=== PATIENT | female | born 1950 | race Caucasian/White ===

== ENCOUNTER 2017-03-16 11:52 | Outpatient (CLI) | payer MEDICARE, BC ==
[~2017-03-16] VITALS: Ht 157.5 cm; Wt 79.5 kg
[~2017-03-16 11:52] MED LIST: BAYER CHEWABLE81 MG PO; BETAPACE 120 M120 MG PO; BUMEX 1 MG TAB1 MG PO; COUMADIN2.5 MG PO; COUMADIN5 MG PO; ESTRACE1 MG PO; K-DUR20 MEQ PO; OMEPRAZOLE20 M1 PO; PREMARIN45 GM VG; ZOCOR40 MG PO
[2017-03-16] MEDS ORDERED: ZANTAC150 MG PO (12:30)
[2017-03-16 12:36] VITALS: BP 95/57; Ht 157.5 cm; Wt 79.5 kg
--- NOTE | 2017-03-16 12:40 | NUR ---
ASSESSMENT, HISTORY AND MEDICINE LIST OBTAINED. PROLIA INSTRUCTION SHEETS GIVEN. PROLIA GIVEN ORDERED.
== END 2017-03-16 12:45 | disposition home or self-care (01) ==
LOC: D.OPS 11:52
DX: M81.0 Age-related osteoporosis without current pathological fracture (principal)